=== PATIENT | male | born 1945 | race Caucasian/White ===

== ENCOUNTER → 2016-08-04 | Outpatient (REF) | payer MEDICARE, OTHER ==
[~2016-08-04] MED LIST: AMLO5TAB2 PO; ASPI81TA11 PO; CARV12.5 PO; HYDR25TAB PO; LISI40TAB PO; SIMV20TA2 PO; TAMS0.4C2 PO; finasteride OR; humalog insulin SC; levemir SC
== END ==
LOC: M SFHCCLAY 16:04
PROVIDERS: ATTEND Family Medicine
DX: E10.9 Type 1 diabetes mellitus without complications (principal); I10 Essential (primary) hypertension

== ENCOUNTER → 2016-08-26 | Outpatient (CLI) | payer MEDICARE, OTHER ==
[~2016-08-26] MED LIST changes: +ASPI-101 PO; -ASPI81TA11 PO
== END ==
LOC: M SMT 15:09
PROVIDERS: ATTEND Urology
DX: Z12.5 Encounter for screening for malignant neoplasm of prostate (principal); N40.1 Benign prostatic hyperplasia with lower urinary tract symptoms
CPT/HCPCS: 36415; 51798; G0103; G0463

== ENCOUNTER → 2016-11-25 | Outpatient (REF) | payer MEDICARE, OTHER | LOC: M SFHCCLAY 15:19 | PROVIDERS: ATTEND Family Medicine | DX: E10.9 Type 1 diabetes mellitus without complications (principal); I10 Essential (primary) hypertension; D64.9 Anemia, unspecified ==

== ENCOUNTER → 2016-12-01 | Outpatient (CLI) | payer MEDICARE, OTHER ==
[2016-12-01 09:37] LABS: MEAN CORPUSCULAR HEMOGLOBIN 30.7 pg (27.0-33.0); MEAN CORPUSCULAR HGB CONC 34.8 g/dl (32.0-36.5); MEAN CORPUSCULAR VOLUME 88.3 fl (80.0-96.0); RED CELL DISTRIBUTION WIDTH 12.1 % (11.5-14.5); WHITE BLOOD COUNT 5.2 K/mm3 (4.0-10.0)
[2016-12-01 09:44] LABS: INR 1.03
[2016-12-01 10:02] LABS: ALT/SGPT 29 U/L (12-78); ANION GAP 8 MEQ/L (8-16); BLOOD UREA NITROGEN 17 MG/DL (7-18); CALCIUM LEVEL 8.2 MG/DL (8.8-10.2); CARBON DIOXIDE LEVEL 30 MEQ/L (21-32); CHLORIDE LEVEL 106 MEQ/L (98-107); CHOLESTEROL LEVEL 149 MG/DL (<200); CREATININE FOR GFR 0.86 MG/DL (0.70-1.30); GLOMERULAR FILTRATION RATE > 60.0 (>42); GLUCOSE, FASTING 140 MG/DL (83-110); POTASSIUM SERUM 4.7 MEQ/L (3.5-5.1); SODIUM LEVEL 144 MEQ/L (136-145); TRIGLYCERIDES LEVEL 85 MG/DL (<150)
== END ==
LOC: M LAB 08:14
PROVIDERS: ATTEND Family Medicine
DX: E10.9 Type 1 diabetes mellitus without complications (principal); Z79.01 Long term (current) use of anticoagulants

== ENCOUNTER → 2016-12-01 | Outpatient (REF) | payer MEDICARE, OTHER | LOC: M SFHCCLAY 07:13 | PROVIDERS: ATTEND Family Medicine | DX: E10.9 Type 1 diabetes mellitus without complications (principal); I10 Essential (primary) hypertension; D64.9 Anemia, unspecified; Z53.9 Procedure and treatment not carried out, unspecified reason ==

== ENCOUNTER → 2017-02-25 | Outpatient (REF) | payer MEDICARE, OTHER | LOC: M SFHCCLAY 12:07 | PROVIDERS: ATTEND Family Medicine | DX: E10.9 Type 1 diabetes mellitus without complications (principal) ==

== ENCOUNTER → 2017-07-23 | Outpatient (CLI) | payer MEDICARE, OTHER ==
[2017-07-23 07:59] LABS: ESTIMATED AVERAGE GLUCOSE 160 MG/DL (60-110); HEMOGLOBIN A1c 7.2 %
[2017-07-23 08:05] LABS: ALT/SGPT 26 U/L (12-78); ANION GAP 6 MEQ/L (8-16); BLOOD UREA NITROGEN 17 MG/DL (7-18); CALCIUM LEVEL 8.4 MG/DL (8.8-10.2); CARBON DIOXIDE LEVEL 28 MEQ/L (21-32); CHLORIDE LEVEL 108 MEQ/L (98-107); CHOLESTEROL LEVEL 157 MG/DL (<200); CHOLESTEROL RISK RATIO 3.204 (<5); CREATININE FOR GFR 0.94 MG/DL (0.70-1.30); GLOMERULAR FILTRATION RATE > 60.0 (>42); GLUCOSE, FASTING 149 MG/DL (70-100); HDL CHOLESTEROL 49 MG/DL (>40); LDL CHOLESTEROL 83.6 MG/DL (<100); NON-HDL-C 108 MG/DL; POTASSIUM SERUM 3.9 MEQ/L (3.5-5.1); SODIUM LEVEL 142 MEQ/L (136-145); TRIGLYCERIDES LEVEL 122 MG/DL (<150)
== END ==
LOC: M LAB 07:17
DX: E10.9 Type 1 diabetes mellitus without complications (principal)
CPT/HCPCS: 84460

== ENCOUNTER → 2017-10-13 | Outpatient (CLI) | payer MEDICARE, OTHER ==
[2017-10-13 18:04] LABS: PSA SCREENING 0.27 NG/ML (< 4.0)
== END ==
LOC: M SMT 13:08
DX: Z12.5 Encounter for screening for malignant neoplasm of prostate (principal)
CPT/HCPCS: G0103

== ENCOUNTER → 2017-12-21 | Outpatient (REF) | payer MEDICARE, OTHER ==
[2017-12-21 18:02] LABS: CREATININE, URINE 98.5 MG/DL; MALB URINE SIEMENS 5.7 MG/L
[2017-12-21 18:04] LABS: ANION GAP 5 MEQ/L (8-16); BLOOD UREA NITROGEN 19 MG/DL (7-18); CALCIUM LEVEL 8.6 MG/DL (8.8-10.2); CARBON DIOXIDE LEVEL 30 MEQ/L (21-32); CHLORIDE LEVEL 106 MEQ/L (98-107); CREATININE FOR GFR 0.97 MG/DL (0.70-1.30); GLOMERULAR FILTRATION RATE > 60.0 (>42); GLUCOSE, FASTING 104 MG/DL (70-100); POTASSIUM SERUM 3.8 MEQ/L (3.5-5.1); SODIUM LEVEL 141 MEQ/L (136-145)
[2017-12-21 18:13] LABS: MAU/CREAT RATIO 5.8 MCG/MG (0.0-30.0)
[2017-12-21 18:15] LABS: ESTIMATED AVERAGE GLUCOSE 160 MG/DL (60-110); HEMOGLOBIN A1c 7.2 %
== END ==
LOC: M SFHCCLAY 11:16
DX: E10.9 Type 1 diabetes mellitus without complications (principal); I10 Essential (primary) hypertension
CPT/HCPCS: 83036

== ENCOUNTER → 2019-01-09 | Outpatient (CLI) | payer MEDICARE, OTHER ==
[~2019-01-09] MED LIST changes: -AMLO5TAB2 PO; +AMLO5TAB6 PO; -ASPI-101 PO; +ASPI-225 PO; +HYDR-2541 PO; -HYDR25TAB PO; +LISI40TA52 PO; -LISI40TAB PO
[2019-01-09 08:10] LABS: ALT/SGPT 27 U/L (12-78); BLOOD UREA NITROGEN 17 MG/DL (7-18); CALCIUM LEVEL 8.4 MG/DL (8.8-10.2); CARBON DIOXIDE LEVEL 29 MEQ/L (21-32); CHLORIDE LEVEL 105 MEQ/L (98-107); CHOLESTEROL LEVEL 146 MG/DL (<200); CREATININE FOR GFR 0.92 MG/DL (0.70-1.30); GLOMERULAR FILTRATION RATE > 60.0 (>42); GLUCOSE, FASTING 126 MG/DL (70-100); HDL CHOLESTEROL 50 MG/DL (>40); LDL CHOLESTEROL 77 MG/DL (<100); NON-HDL-C 96 MG/DL; POTASSIUM SERUM 3.8 MEQ/L (3.5-5.1); SODIUM LEVEL 142 MEQ/L (136-145); TRIGLYCERIDES LEVEL 96 MG/DL (<150)
[2019-01-09 08:16] LABS: CREATININE, URINE 74.7 MG/DL; MALB URINE SIEMENS 5.6 MG/L; MAU/CREAT RATIO 7.4 MCG/MG (0.0-30.0)
[2019-01-09 09:29] LABS: HEMOGLOBIN A1c 6.6 %
== END ==
LOC: M LAB 06:40
PROVIDERS: ATTEND Family Medicine
DX: E10.9 Type 1 diabetes mellitus without complications (principal); I10 Essential (primary) hypertension

== ENCOUNTER → 2019-02-17 | Outpatient (REF) | payer MEDICARE, OTHER ==
[~2019-02-17] MED LIST changes: -SIMV20TA2 PO; +SIMV20TA22 PO
[2019-02-17 19:12] LABS: REDUCING SUBSTANCE NEGATIVE (NEGATIVE)
== END ==
LOC: M SFHCCLAY 17:34
PROVIDERS: ATTEND Family Medicine
DX: R19.7 Diarrhea, unspecified (principal)

== ENCOUNTER → 2019-09-19 | Outpatient (CLI) | payer MEDICARE, OTHER ==
[~2019-09-19] MED LIST changes: +AMLO1TAB24 PO; -AMLO5TAB6 PO; -ASPI-225 PO; +ASPI81TA78 PO
[2019-09-19 19:10] LABS: HEMOGLOBIN A1c 6.5 %
== END ==
LOC: M RAD 12:25
PROVIDERS: ATTEND Family Medicine
DX: E10.9 Type 1 diabetes mellitus without complications (principal); Z12.5 Encounter for screening for malignant neoplasm of prostate; N32.0 Bladder-neck obstruction; N40.1 Benign prostatic hyperplasia with lower urinary tract symptoms
CPT/HCPCS: 36415; 83036; G0103

== ENCOUNTER 2019-10-18 08:40 | Day surgery (SDC) | payer MEDICARE, OTHER ==
--- NOTE | 2019-11-22 11:27 | ROOR ---
Patient Name: Kyle Banks Procedure Date: 10/18/2019 8:58 AM Date of : 1945 Age: 74 Room: [facility] Gender: Male Note Status: [employer] Consultant Override Procedure: Total Colonoscopy to Cecum + Bx. To r/o Microscopic Colitis Indications: Lower abdominal pain, Change in bowel habits, Clinically significant diarrhea of unexplained origin Providers: Dalton Sneed MD Referring MD: Manohar Wylei MD Requesting Provider: Medicines: Monitored Anesthesia Care Complications: No immediate complications. Procedure: Pre-Anesthesia Assessment: - The heart rate, respiratory rate, oxygen saturations, blood pressure, adequacy of pulmonary ventilation, and response to care were monitored throughout the procedure. The Colonoscope was introduced through the anus and advanced to the cecum, identified by appendiceal orifice and ileocecal valve. The colonoscopy was performed without difficulty. The patient tolerated the procedure well. The quality of the bowel preparation was excellent. Findings: The perianal and digital rectal examinations were normal. Non-bleeding internal hemorrhoids were found during retroflexion. The hemorrhoids were small and Grade I (internal hemorrhoids that do not prolapse). No other significant abnormalities were identified in a careful examination of the remainder of the colon. Biopsies for histology were taken with a cold forceps from the ascending colon, transverse colon and descending colon for evaluation of microscopic colitis. The exam was otherwise without abnormality on direct and retroflexion views. Impression: - Non-bleeding internal hemorrhoids. - The examination was otherwise normal on direct and retroflexion views. - Biopsies were taken with a cold forceps from the ascending colon, transverse colon and descending colon for evaluation of microscopic colitis. - The exam was otherwise normal to the cecum. Recommendation: - Patient has a contact number available for emergencies. The signs and symptoms of potential delayed complications were discussed with the patient. Return to normal activities tomorrow. Written discharge instructions were provided to the patient. - High fiber diet. - Discharge patient to home. - Continue present medications. - Await pathology results. - Telephone GI clinic for pathology results in 1 week. - Repeat colonoscopy in 10 years for screening purposes. - Return to referring physician. - The findings and recommendations were discussed with the patient. Dalton Sneed MD Dalton Sneed MD 10/18/2019 9:26:27 AM Electronically signed by Dalton Sneed MD Number of Addenda: 0 Note Initiated On: 10/18/2019 8:58 AM Estimated Blood Loss: Estimated blood loss: none.
== END 2019-10-18 09:51 | disposition home or self-care (01) ==
LOC: M SDC 08:40
PROVIDERS: ATTEND Internal Medicine Gastroenterology
DX: K64.0 First degree hemorrhoids (principal); R10.30 Lower abdominal pain, unspecified; R19.4 Change in bowel habit; R19.7 Diarrhea, unspecified; E11.9 Type 2 diabetes mellitus without complications; I10 Essential (primary) hypertension; Z79.4 Long term (current) use of insulin; Z79.82 Long term (current) use of aspirin; Z79.899 Other long term (current) drug therapy

== ENCOUNTER → 2020-01-19 | Outpatient (CLI) | payer MEDICARE, OTHER ==
[2020-01-19 09:04] LABS: HEMATOCRIT 42.5 % (42.0-52.0); MEAN CORPUSCULAR HEMOGLOBIN 29.3 pg (27.0-33.0); MEAN CORPUSCULAR HGB CONC 32.9 g/dl (32.0-36.5); MEAN CORPUSCULAR VOLUME 88.9 fl (80.0-96.0); PLATELET COUNT, AUTOMATED 202 10^3/uL (150-450); RED BLOOD COUNT 4.78 10^6/uL (4.30-6.10); WHITE BLOOD COUNT 6.5 10^3/uL (4.0-10.0)
[2020-01-19 09:35] LABS: ALBUMIN 3.5 GM/DL (3.2-5.2); ALT/SGPT 24 U/L (12-78); BILIRUBIN,TOTAL 0.6 MG/DL (0.2-1.0); BLOOD UREA NITROGEN 19 MG/DL (7-18); CALCIUM LEVEL 8.8 MG/DL (8.8-10.2); CARBON DIOXIDE LEVEL 32 MEQ/L (21-32); CHLORIDE LEVEL 104 MEQ/L (98-107); CHOLESTEROL LEVEL 161 MG/DL (<200); CREATININE FOR GFR 1.03 MG/DL (0.70-1.30); GLOMERULAR FILTRATION RATE > 60.0 (>42); GLUCOSE, FASTING 147 MG/DL (70-100); HDL CHOLESTEROL 50 MG/DL (>40); LDL CHOLESTEROL 89 MG/DL (<100); NON-HDL-C 111 MG/DL; POTASSIUM SERUM 4.3 MEQ/L (3.5-5.1); SODIUM LEVEL 140 MEQ/L (136-145); TOTAL PROTEIN 6.5 GM/DL (6.4-8.2); TRIGLYCERIDES LEVEL 112 MG/DL (<150)
[2020-01-19 09:51] LABS: MALB URINE SIEMENS < 5.0 MG/L; MAU/CREAT RATIO 4.6 MCG/MG (0.0-30.0)
[2020-01-19 10:11] LABS: HEMOGLOBIN A1c 6.6 %
== END ==
LOC: M LAB 08:17
PROVIDERS: ATTEND Family Medicine
DX: R23.3 Spontaneous ecchymoses (principal); Z79.899 Other long term (current) drug therapy

== ENCOUNTER → 2020-07-31 | Outpatient (REF) | payer MEDICARE, OTHER ==
[2020-07-31 17:27] LABS: HEMOGLOBIN A1c 6.4 %
== END ==
LOC: M SFHCCLAY 11:02
PROVIDERS: ATTEND Family Medicine
DX: E10.9 Type 1 diabetes mellitus without complications (principal); I10 Essential (primary) hypertension
CPT/HCPCS: 83036; G0463

== ENCOUNTER → 2020-11-26 | Outpatient (REF) | payer MEDICARE, OTHER ==
[2020-11-27 13:04] LABS: HEMOGLOBIN A1c 6.2 %
[2020-11-27 13:14] LABS: BLOOD UREA NITROGEN 17 MG/DL (7-18); CALCIUM LEVEL 8.9 MG/DL (8.8-10.2); CARBON DIOXIDE LEVEL 30 MEQ/L (21-32); CHLORIDE LEVEL 103 MEQ/L (98-107); CREATININE FOR GFR 0.97 MG/DL (0.70-1.30); GLOMERULAR FILTRATION RATE > 60.0 (>42); GLUCOSE, FASTING 152 MG/DL (70-100); POTASSIUM SERUM 4.4 MEQ/L (3.5-5.1); SODIUM LEVEL 138 MEQ/L (136-145)
== END ==
LOC: M SFHCCLAY 13:54
PROVIDERS: ATTEND Family Medicine
DX: E10.9 Type 1 diabetes mellitus without complications (principal); I10 Essential (primary) hypertension; Z12.5 Encounter for screening for malignant neoplasm of prostate
CPT/HCPCS: 80048; 83036; G0103; G0463

== ENCOUNTER → 2021-07-30 | Outpatient (REF) | payer MEDICARE, OTHER ==
[2021-07-31 12:56] LABS: MALB URINE SIEMENS 9.8 MG/L; MAU/CREAT RATIO 9.8 MCG/MG (0.0-30.0)
[2021-07-31 13:11] LABS: HEMOGLOBIN A1c 6.3 %
== END ==
LOC: M SFHCCLAY 14:11
PROVIDERS: ATTEND Family Medicine
DX: E10.9 Type 1 diabetes mellitus without complications (principal)

== ENCOUNTER → 2022-01-16 | Outpatient (CLI) | payer MEDICARE, OTHER | LOC: M LAB 15:36 | PROVIDERS: ATTEND Urology | DX: Z12.5 Encounter for screening for malignant neoplasm of prostate (principal) | CPT/HCPCS: 36415; G0103 ==

== ENCOUNTER → 2022-02-09 | Outpatient (CLI) | payer MEDICARE, OTHER ==
[2022-02-09 15:03] LABS: MALB URINE SIEMENS < 5.0 MG/DL; MAU/CREAT RATIO 6.1 MCG/MG (0.0-30.0)
[2022-02-09 15:08] LABS: CARBON DIOXIDE LEVEL 31 MMOL/L (20-31); CHLORIDE LEVEL 104 MMOL/L (98-107); POTASSIUM SERUM 4.2 MMOL/L (3.5-5.1); SODIUM LEVEL 143 MMOL/L (136-145)
[2022-02-09 15:09] LABS: ALBUMIN 3.9 G/DL (3.2-5.2)
[2022-02-09 15:12] LABS: BLOOD UREA NITROGEN 16 MG/DL (9-23); TRIGLYCERIDES LEVEL 61 MG/DL (<150)
[2022-02-09 15:13] LABS: ALKALINE PHOSPHATASE 84 U/L (46-116); BILIRUBIN,TOTAL 0.7 MG/DL (0.3-1.2)
[2022-02-09 15:14] LABS: GLUCOSE, FASTING 94 MG/DL (74-106); TOTAL PROTEIN 6.8 G/DL (5.7-8.2)
[2022-02-09 15:15] LABS: ALT/SGPT 26 U/L (7.0-40); AST/SGOT 28 U/L (<34)
[2022-02-09 15:16] LABS: CHOLESTEROL LEVEL 145 MG/DL (<200); CHOLESTEROL RISK RATIO 2.95 (<5); CREATININE FOR GFR 0.87 MG/DL (0.70-1.30); GLOMERULAR FILTRATION RATE > 60.0 (>42); LDL CHOLESTEROL 83.8 MG/DL (<100); NON-HDL-C 96 MG/DL
[2022-02-09 19:43] LABS: HEMOGLOBIN A1c 5.5 % (4.0-6.0)
== END ==
LOC: M LAB 10:19
PROVIDERS: ATTEND Family Medicine
DX: E10.9 Type 1 diabetes mellitus without complications (principal)

== ENCOUNTER → 2022-08-13 | Outpatient (REF) | payer MEDICARE, OTHER ==
[2022-08-13 17:38] LABS: FOLATE > 24.00 NG/ML (>5.4); VITAMIN B12 LEVEL 576 PG/ML (211-911)
[2022-08-13 17:42] LABS: LDH LACTATE DEHYDROGENASE 232 U/L (120-246)
[2022-08-13 17:45] LABS: IRON (FE) 78 UG/DL (65-175); PERCENT SATURATION 25.5 % (19.7-50.0); TOTAL IRON BINDING CAPACITY 306 UG/DL (250-425)
== END ==
LOC: M SFHCCLAY 11:06
PROVIDERS: ATTEND Family Medicine
DX: D64.9 Anemia, unspecified (principal)

== ENCOUNTER → 2023-01-12 | Outpatient (CLI) | payer MEDICARE, OTHER ==
[2023-01-12 14:46] LABS: BASO # 0.1 10^3/uL (0.0-0.2); BASO % 0.8 % (0.0-1.0); EOS # 0.3 10^3/uL (0.0-0.5); EOS % 3.8 % (0.0-3.0); HEMATOCRIT 40.3 % (42.0-52.0); HEMOGLOBIN 13.7 g/dl (13.5-17.5); LYMPH # 1.8 10^3/uL (1.5-5.0); LYMPH % 27.7 % (24.0-44.0); MEAN CORPUSCULAR HEMOGLOBIN 29.7 pg (27.0-33.0); MEAN CORPUSCULAR VOLUME 87.4 fl (80.0-96.0); MONO # 0.6 10^3/uL (0.0-0.8); MONO % 9.8 % (2.0-8.0); NEUTROPHILS # 3.7 10^3/uL (1.5-8.5); NEUTROPHILS % 57.6 % (36.0-66.0); PLATELET COUNT, AUTOMATED 205 10^3/uL (150-450); RED BLOOD COUNT 4.61 10^6/uL (4.30-6.10); WHITE BLOOD COUNT 6.5 10^3/uL (4.0-10.0)
[2023-01-12 15:06] LABS: HEMOGLOBIN A1c 5.7 % (4.0-6.0)
== END ==
LOC: M LAB 13:45
PROVIDERS: ATTEND Family Medicine
DX: Z12.5 Encounter for screening for malignant neoplasm of prostate (principal)
CPT/HCPCS: 36415; 83036; 85025; G0103

== ENCOUNTER → 2023-08-06 | Outpatient (REF) | payer MEDICARE, OTHER ==
[2023-08-06 17:58] LABS: HEMOGLOBIN A1c 5.8 % (4.0-6.0)
[2023-08-06 18:08] LABS: CREATININE, URINE 72.6 MG/DL; MALB URINE SIEMENS < 3.0 MG/L; MAU/CREAT RATIO 4.1 MCG/MG (0.0-30.0)
== END ==
LOC: M SFHCCLAY 12:10
PROVIDERS: ATTEND Family Medicine
DX: E10.9 Type 1 diabetes mellitus without complications (principal)

== ENCOUNTER → 2024-12-19 | Outpatient (CLI) | payer MEDICARE, OTHER ==
[2024-12-19 08:26] LABS: PLATELET COUNT, AUTOMATED 200 10^3/uL (150-450)
[2024-12-19 08:48] LABS: PSA SCREENING 0.7 NG/ML (< 4.00)
[2024-12-19 08:57] LABS: ALT/SGPT 19.0 U/L (7.0-40); AST/SGOT 20.0 U/L (<34); CALCIUM LEVEL 9.3 MG/DL (8.3-10.6); CARBON DIOXIDE LEVEL 30.0 MMOL/L (20-31); CHLORIDE LEVEL 105.0 MMOL/L (98-107); CHOLESTEROL LEVEL 143.0 MG/DL (<200); CHOLESTEROL RISK RATIO 2.64 (<5); CREATININE FOR GFR 0.98 MG/DL (0.70-1.30); GLOMERULAR FILTRATION RATE 77.5 (>35); LDL CHOLESTEROL 71.6 MG/DL (<100); NON-HDL-C 89.0 MG/DL; POTASSIUM SERUM 4.1 MMOL/L (3.5-5.1); SODIUM LEVEL 143.0 MMOL/L (136-145); TRIGLYCERIDES LEVEL 87.0 MG/DL (<150)
[2024-12-19 09:23] LABS: ESTIMATED AVERAGE GLUCOSE 126.0 MG/DL (60-110)
== END ==
LOC: M LAB 07:36
PROVIDERS: ATTEND Physician Assistant
DX: Z00.00 Encounter for general adult medical examination without abnormal findings (principal); E10.9 Type 1 diabetes mellitus without complications; N52.9 Male erectile dysfunction, unspecified; N40.1 Benign prostatic hyperplasia with lower urinary tract symptoms; K59.00 Constipation, unspecified; Z85.820 Personal history of malignant melanoma of skin; Z12.5 Encounter for screening for malignant neoplasm of prostate
CPT/HCPCS: 36415; 80053; 80061; 83036; 85027; G0103